=== PATIENT | male | born 1960 | race Caucasian/White ===

== ENCOUNTER 2024-06-29 10:50 | Outpatient (CLI) | payer MEDICAID, SELFPAY | END 2024-06-29 10:51 | disposition home or self-care (01) | PROVIDERS: PCP Internal Medicine; Visit Provider Internal Medicine | DX: Z13.228 Encounter for screening for other metabolic disorders (principal); Z13.220 Encounter for screening for lipoid disorders; Z12.5 Encounter for screening for malignant neoplasm of prostate | CPT/HCPCS: 80053; 80061; G0103 ==